=== PATIENT | female | born 1975 | race Caucasian/White ===

== ENCOUNTER 2018-05-21 21:12 | Emergency (ER) | payer SELFPAY ==
[~2018-05-21] VITALS: Ht 162.6 cm; Wt 72.6 kg
--- NOTE | 2018-05-21 21:59 | ED Chest Pain ---
General Chief Complaint: Chest Wall/Rib Pain Stated Complaint: FELL ON 05/16 HURT RIBS LEFT SIDE Nursing Triage Note: PT TO ED 4 W/ S.O. FOR C/O LT RIB PAIN ONSET 05/16/18 AFTER FALLING AT HOME. PT REPORTS SHE WAS STANDING ON A CHAIR HANGING A BULB WHEN SHE LOST HER BALANCE ET FELL STRIKING EITHER THE CHAIR OR THE FLOOR. PT IS UNSURE WHICH. BRUISING NOTED TO RT CHEST AREA, NO BRUISING OR ABRASIONS NOTED TO LT. Nursing Sepsis Screen: No Definite Risk Source: patient Exam Limitations: no limitations History of Present Illness Date Seen by Provider: May 21, 2018 Time Seen by Provider: 21:57 Initial Comments To ER per private vehicle with reports of left upper abdomen lateral lower chest pain which began on 05/16/18 after she fell landing on her left side. Timing/Duration: 1 week, getting worse Severity/Quality: moderate Radiation: no radiation ASA po BEARING MAKER: No NTG SL BEARING MAKER: No Allergies and Home Medications Allergies Coded Allergies: No Known Drug Allergies (Unverified , 05/21/18) Patient Home Medication List Home Medication List Reviewed: Yes Review of Systems Review of Systems Constitutional: see HPI EENTM: No Symptoms Reported Respiratory: No Symptoms Reported Cardiovascular: See HPI, Chest Pain Gastrointestinal: See HPI, Abdominal Pain Genitourinary: No Symptoms Reported Musculoskeletal: no symptoms reported Skin: no symptoms reported Psychiatric/Neurological: No Symptoms Reported Endocrine: No Symptoms Reported Past Ofkdcdi-Wrrjbn-[place] Hx Patient Social History Alcohol Use: Denies Use Recreational Drug Use: No Smoking Status: Current Everyday Smoker Type Used: Cigarettes 2nd Hand Smoke Exposure: Yes Recent Foreign Travel: No Contact w/Someone Who Travel: No Recent Infectious Disease Expo: No Recent Hopitalizations: No Physical Abuse: No Sexual Abuse: No Mistreated: No Fear: No Immunizations Up To Date Tetanus Booster (TDap): Less than 5yrs Seasonal Allergies Seasonal Allergies: No Past Medical History Surgeries: Yes Gallbladder Respiratory: No Cardiac: No Neurological: No Genitourinary: No Gastrointestinal: No Musculoskeletal: No Endocrine: No HEENT: No Cancer: No Psychosocial: No Integumentary: No Blood Disorders: No Physical Exam Vital Signs Vital Signs - First Documented 05/21/18 21:45 Temp 97.3 Pulse 107 Resp 20 B/P (MAP) 133/91 (105) Pulse Ox 98 O2 Delivery Room Air Capillary Refill : Less Than 3 Seconds Height, Weight, BMI Height: 5'4.00" Weight: 160lbs. oz. 72.011313fq; BMI Method:Stated General Appearance: No Apparent Distress, WD/WN HEENT: PERRL/EOMI, TMs Normal Neck: Full Range of Motion, Normal Inspection Respiratory: No Accessory Muscle Use, No Respiratory Distress, Other ( worsening pain with taking a deep breath) Cardiovascular: Normal Peripheral Pulses (and tachycardia), Tachycardia Gastrointestinal: Non Tender, Soft, Other (tenderness to the very left upper abdomen) Extremity: Normal Capillary Refill, Normal Inspection Neurologic/Psychiatric: Alert, Oriented x3 Skin: Normal Color, Warm/Dry Progress/Results/Core Measures Results/Orders Lab Results Laboratory Tests Test 05/21/18 22:00 Range/Units White Blood Count 11.8 H 4.3-11.0 10^3/uL Red Blood Count 4.54 4.35-5.85 10^6/uL Hemoglobin 13.8 11.5-16.0 G/DL Hematocrit 40 35-52 % Mean Corpuscular Volume 88 80-99 FL Mean Corpuscular Hemoglobin 30 25-34 PG Mean Corpuscular Hemoglobin Concent 35 32-36 G/DL Red Cell Distribution Width 12.3 10.0-14.5 % Platelet Count 405 H 130-400 10^3/uL Mean Platelet Volume 8.7 7.4-10.4 FL Neutrophils (%) (Auto) 67 42-75 % Lymphocytes (%) (Auto) 25 12-44 % Monocytes (%) (Auto) 6 0-12 % Eosinophils (%) (Auto) 2 0-10 % Basophils (%) (Auto) 0 0-10 % Neutrophils # (Auto) 8.0 H 1.8-7.8 X 10^3 Lymphocytes # (Auto) 2.9 1.0-4.0 X 10^3 Monocytes # (Auto) 0.7 0.0-1.0 X 10^3 Eosinophils # (Auto) 0.2 0.0-0.3 10^3/uL Basophils # (Auto) 0.0 0.0-0.1 10^3/uL Serum Test, Qualitative NEGATIVE NEGATIVE My Orders Orders - BHARATI ROSARIO APRN Iv Heplock-Insert (Order) (05/21/18 21:55) Ct Chest/Abdomen W (05/21/18 21:55) Cbc With Automated Diff (05/21/18 21:55) Hcg,Qualitative Serum (05/21/18 21:55) Hydrocodone/Apap 5/325 Tablet (Lortab 5 (05/21/18 22:45) Rx-Hydrocodone/Apap 5-325 Mg (Rx-Vicodin (05/21/18 23:00) Vital Signs/I&O 05/21/18 21:45 Temp 97.3 Pulse 107 Resp 20 B/P (MAP) 133/91 (105) Pulse Ox 98 O2 Delivery Room Air Blood Pressure Mean: 105 Departure Impression Primary Impression: Rib fracture Qualified Codes: S22.32XA - Fracture of one rib, left side, initial encounter for closed fracture Disposition: HOME, SELF-CARE Condition: Stable Departure-Patient Inst. Decision time for Depature: 23:01 Referrals: NO,LOCAL PHYSICIAN (PCP) Primary Care Physician Patient Instructions: Rib Fracture (DC) Add. Discharge Instructions: 1. Pain medication as directed 2. Return to ER for any concerns 3. Follow-up with your doctor next week 4. Use the incentive brought her as directed. All discharge instructions reviewed with patient and/or family. Voiced understanding. Scripts Hydrocodone/Acetaminophen ([place] 5-325 Tablet) 1 Each Tablet 1 EACH PO Q6H PRN for PAIN-MODERATE MDD 10, #10 TAB Prov: BHARATI ROSARIO APRN 05/21/18 BHARATI ROSARIO APRN May 21, 2018 21:59
[2018-05-21 22:06] LABS: BASOPHILS % (AUTO) 0 % (0-10); EOSINOPHILS # (AUTO) 0.2 10^3/uL (0.0-0.3); EOSINOPHILS % (AUTO) 2 % (0-10); HEMATOCRIT 40 % (35-52); HEMOGLOBIN 13.8 G/DL (11.5-16.0); LYMPHOCYTES # (AUTO) 2.9 X 10^3 (1.0-4.0); LYMPHOCYTES % (AUTO) 25 % (12-44); MEAN CORPUSCULAR HEMOGLOBIN 30 PG (25-34); MEAN CORPUSCULAR HGB CONC 35 G/DL (32-36); MEAN CORPUSCULAR VOLUME 88 FL (80-99); MEAN PLATELET VOLUME 8.7 FL (7.4-10.4); MONOCYTES # (AUTO) 0.7 X 10^3 (0.0-1.0); MONOCYTES % (AUTO) 6 % (0-12); NEUTROPHILS % (AUTO) 67 % (42-75); PLATELET COUNT 405 10^3/uL (130-400); RED BLOOD COUNT 4.54 10^6/uL (4.35-5.85); RED CELL DISTRIBUTION WIDTH 12.3 % (10.0-14.5); WHITE BLOOD COUNT 11.8 10^3/uL (4.3-11.0)
[2018-05-21] MEDS ORDERED: HYDROcodone/APAP 5 MG/325 MG (LORTAB) TAB PO ONE (22:45)
--- NOTE | 2018-05-21 22:46 | NUR ---
PT TO CT PER W/C
[2018-05-21] MEDS ORDERED: RX-HYDROCODONE/APAP 5/325 MG #4 TAB PK PO PRN (23:00)
[2018-05-21] MEDS ORDERED: HYDR-4226 PO (23:02)
[2018-05-21] MEDS ORDERED: IOHEXOL 350 MG/ML 100 ML (OMNIPAQUE 350) VIAL IV ONE (23:45)
[2018-05-21] MEDS ORDERED: NS 250 ML (IVPB) BAG IV ONE (23:45)
--- NOTE | 2018-05-21 23:45 | NUR ---
RT TO PT'S ROOM TO EDUCATE PT ON INCENTIVE SPIROMETRY.
[2018-05-22 00:25] VITALS: BP 129/88
--- NOTE | 2018-05-22 00:25 | NUR ---
PT DISCHARGED TO HOME W/ MED, RX ET INSTR. PT TO TAKE MEDICATION PRESCRIBED, USE INCENTIVE SPIROMETRY DISCUSSED, F/U W/ PCP ET RETURN IF SYMPTOMS CHANGE OR GET WORSE. PT VOICED UNDERSTANDING. NO QUESTIONS.
--- NOTE | 2018-05-22 07:35 | Diagnostic Imaging Report ---
PROCEDURE: CT chest and abdomen with contrast. TECHNIQUE: Multiple contiguous axial images were obtained through the chest and abdomen after the administration of intravenous contrast. DATE: May 21, 2018. INDICATION: 43-year-old female, fall 6 days ago. Left rib and upper flank pain. COMPARISON: None available. FINDINGS: There is no identified pulmonary nodule or lung mass. There is no focal airspace consolidation. There is no pleural effusion. There is no pneumothorax. The central airways are patent. The heart is not enlarged. There is no pericardial effusion. There is no identified central or segmental pulmonary embolus. There is no evidence of acute aortic injury. There is no evidence of aortic dissection. There is no mediastinal hematoma. There is direct origin of the left vertebral artery off the aortic arch. There is no identified abnormally enlarged mediastinal, hilar, or axillary lymph node which meets CT size criteria for adenopathy. The liver is unremarkable in size and contour. There is no evidence of liver laceration. There is no perihepatic fluid. The main, right, and left portal veins are patent. The patient is status post cholecystectomy. There is no intrahepatic or extrahepatic bile duct dilation. The main pancreatic duct is not abnormally dilated. Unremarkable appearance of the pancreatic parenchyma. The spleen is not enlarged. There is no evidence of acute splenic injury. The adrenal glands are unremarkable. Unremarkable appearance of the renal parenchyma. There is no hydronephrosis. The visualized segments of the intestinal tract are not distended. There is no identified free intraperitoneal air, free fluid within the abdomen, or drainable fluid collection. There is no identified abnormally enlarged lymph node in the abdomen which meets CT size criteria for adenopathy. There is no identified acute bony abnormality. IMPRESSION: 1. No identified acute abnormality within the chest or abdomen. 2. No identified acute bony abnormality. Dictated by: Dictated on workstation # [id number]
== END 2018-05-22 00:25 | disposition home or self-care (01) ==
LOC: EDUNIT# 21:12 → ER 21:14
DX: S22.32XA Fracture of one rib, left side, initial encounter for closed fracture (principal); F17.210 Nicotine dependence, cigarettes, uncomplicated; W07.XXXA Fall from chair, initial encounter; W22.09XA Striking against other stationary object, initial encounter
CPT/HCPCS: 36415; 71260; 74160; 84703; 85025; 94664

== ENCOUNTER 2021-01-05 21:56 | Emergency (ER) | payer SELFPAY ==
[~2021-01-05] VITALS: Ht 155 cm; Wt 70.3 kg
[~2021-01-05 21:56] MED LIST: HYDR-4226 PO
[2021-01-05 22:11] VITALS: BP 152/94
[2021-01-05] MEDS ORDERED: TRIM/SULFAMETH 160/800 (SEPTRA DS) TAB PO ONE (22:30)
--- NOTE | 2021-01-05 22:49 | ED Integumentary General ---
General Chief Complaint: Skin/Wound Problems Stated Complaint: RASH ON STOMACH Nursing Triage Note: 4 2-cm oval/round shaped open areas to lower abdomen x1 month. Source: patient Exam Limitations: no limitations History of Present Illness Date Seen by Provider: Jan 05, 2021 Time Seen by Provider: 22:28 Initial Comments Patient is a 45-year-old who presents to the emergency department with multiple ulcers to her anterior abdominal wall. Patient states these have been there for at least a month. She is concerned for "staph infection". Patient has been using dry gauze to cover her dressings and states that the tape seems to make them hurt worse. She states she has not seen a doctor in a couple of years. She does not know if she is diabetic. She states she is not picking on the wounds. She is still able to work well the wounds are on her abdomen. She denies fevers, chills, cough or shortness of breath. No nausea vomiting or diarrhea. No other constitutional complaints. She did take one of her daughters hydrocodone the other day for pain and she states it helped. Ibuprofen also helps a little as well. All other review of systems reviewed and negative except as stated. Timing/Duration: getting worse Severity: severe Location: torso Possible Cause: no cause identified Associated Symptoms: change in skin texture, other (Pain) Allergies and Home Medications Allergies Coded Allergies: No Known Drug Allergies (Unverified , 05/21/18) Home Medications No Active Prescriptions or Reported Meds Patient Home Medication List Home Medication List Reviewed: Yes Review of Systems Review of Systems Constitutional: see HPI EENTM: no symptoms reported Respiratory: no symptoms reported Cardiovascular: no symptoms reported Gastrointestinal: no symptoms reported Genitourinary: no symptoms reported : No Skin: other (Multiple wounds to the anterior abdominal wall) Psychiatric/Neurological: No Symptoms Reported Endocrine: Denies Increased Thrist, Denies Increased Urine All Other Systems Reviewed Negative Unless Noted: Yes Past Wnihgzm-Opotdt-Hzbrtl Hx Patient Social History Tobacco Use?: Yes Tobacco type used: Cigarettes Smoking Status: Current Everyday Smoker Use of E-Cig and/or Vaping dev: No Substance use?: No Alcohol Use?: No Pt feels they are or have been: No Immunizations Up To Date Tetanus Booster (TDap): Less than 5yrs Seasonal Allergies Seasonal Allergies: No Past Medical History Surgery/Hospitalization HX: x4, gricel Surgeries: Yes Gallbladder Respiratory: No Cardiac: No Neurological: No Genitourinary: No Gastrointestinal: No Musculoskeletal: No Endocrine: No HEENT: No Cancer: No Psychosocial: No Integumentary: No Blood Disorders: No Physical Exam Vital Signs Vital Signs - First Documented 01/05/21 22:11 Temp 36.8 Pulse 88 Resp 18 B/P (MAP) 152/94 (113) Pulse Ox 99 O2 Delivery Room Air Capillary Refill : Less Than 3 Seconds General Appearance: WD/WN, no apparent distress Cardiovascular: regular rate, rhythm Respiratory: lungs clear, normal breath sounds, no respiratory distress, no accessory muscle use Gastrointestinal: soft, tenderness (To palpation of the anterior abdominal wall) Extremities: normal range of motion, normal inspection Neurologic/Psychiatric: alert, normal mood/affect, oriented x 3 Skin: other (Multiple shallow ulcers to the anterior abdominal wall in various stages of healing. The patient has 1 open ulcer about 3 cm in diameter to the right mid abdomen it seems to be about a centimeter in depth. It has a pink center with some yellow purulence. Mild surrounding erythema. She has multiple other ulcers at max 2 cm in diameter 1 adjacent to the umbilicus with some erythema. She has a healing ulcer over the left hip. She has 1 just below her right rib cage. None of these areas are fluctuant. No other complaints of ulcers on any other parts of her body.) Skin Problem Location: generalized (Torso) Skin Problem Character: erythema, lesion, tenderness, warm Progress/Results/Core Measures Results/Orders Lab Results Laboratory Tests Test 01/05/21 22:28 Range/Units Glucometer 101 70-110 MG/DL My Orders Orders - ANDRES TIWARI MD Accucheck Stat ONCE (01/05/21 22:26) Sulfamethoxazole/Trimet Ds Tab (Bactrim (01/05/21 22:30) Wound Culture (01/05/21 22:26) Rx-Hydrocodone/Apap 5-325 Mg (Rx-Vicodin (01/05/21 22:30) Medications Given in ED Current Medications Medications Dose Ordered Sig/Reyna Route Start Time Stop Time Status Last Admin Dose Admin Acetaminophen/ Hydrocodone Bitart 1 ea Q6H PRN PO 01/05/21 22:30 01/05/21 22:32 1 EA Trimethoprim/ Sulfamethoxazole 1 ea ONCE ONCE PO 8/15/21 22:30 01/05/21 22:31 DC 01/05/21 22:32 1 EA Vital Signs/I&O 01/05/21 22:11 Temp 36.8 Pulse 88 Resp 18 B/P (MAP) 152/94 (113) Pulse Ox 99 O2 Delivery Room Air Blood Pressure Mean: 113 FSBG Bedside Testing Finger Stick Blood Glucose: 101 Progress Progress Note : Time: 22:51 Progress Note Patient's bedside glucose is 101. Wounds are dressed with saline soaked gauze and a dry dressing. Patient is placed on Bactrim. She is advised to drink lots of water while on the Bactrim. She is given 8 hydrocodone tablets of 5 mg. She is encouraged to keep the wounds clean dry and covered. She is advised to follow-up with [facility]. She is given good return precautions. She verbalized understanding. All questions are sought and answered. Patient is stable for discharge. Departure Impression Primary Impression: Abdominal wall skin ulcer Qualified Codes: L98.492 - Non-pressure chronic ulcer of skin of other sites with fat layer exposed Disposition: HOME, SELF-CARE Condition: Stable Departure-Patient Inst. Decision time for Depature: 22:48 Referrals: NO,LOCAL PHYSICIAN (PCP) Primary Care Physician [facility] Patient Instructions: Wound Care (DC) Add. Discharge Instructions: Please wash your wounds with soap and water daily. Keep them clean dry and covered. The largest deepest ulcers need a saline soaked piece of gauze at the base and then covered with a dry dressing. You will need to follow-up with [facility] within the next week to ensure that the wounds are healing. You may even need to be referred to wound care for further evaluation and management of these wounds. I have put you on Bactrim, an antibiotic that you will take twice a day. Please drink lots of water while on this antibiotic as it can affect your kidneys if you do not. I have given you some pain medication, do not drive and take this. You can alternate the pain medication with [id number] ibuprofen, 3 pills which is 600 mg every 6 hours with food for pain. Return to the emergency room if the wounds become larger, have increasing redness or drainage or you develop a fever. Scripts Hydrocodone/Acetaminophen (Hydrocodone-Acetamin 5-325 mg) 1 Each Tablet 1 TAB PO Q6H PRN for PAIN-MODERATE (5-7), #8 TAB Prov: ANDRES TIWARI MD 01/05/21 Sulfamethoxazole/Trimethoprim (Bactrim 400-80 mg Tablet) 1 Each Tablet 1 EACH PO BID, #20 TAB Prov: ANDRES TIWARI MD 01/05/21 ANDRES TIWARI MD Jan 05, 2021 22:49
[2021-01-05] MEDS ORDERED: SULF1TAB34 PO (22:50)
[2021-01-05] MEDS ORDERED: ACHD5005 PO (22:50)
== END 2021-01-05 22:55 | disposition home or self-care (01) ==
LOC: EDUNIT# 21:56 → ER 22:00
DX: L89.891 Pressure ulcer of other site, stage 1 (principal); F17.210 Nicotine dependence, cigarettes, uncomplicated
CPT/HCPCS: 82947; 87070; 87205